=== PATIENT | female | born 1990 | race Caucasian/White ===

== ENCOUNTER 2017-01-01 05:59 | Emergency (ER) | payer OTHER ==
[2017-01-01] MEDS ORDERED: ONDANSETRON 4 MG/2 ML VIAL IVP STA (06:35)
[2017-01-01] MEDS ORDERED: ONDANSETRON 4 MG/2 ML VIAL ONE (06:40)
[2017-01-01] MEDS ORDERED: SODIUM CHLORIDE 0.9% 1,000 ML IV ONE ×2 (06:40→06:53)
--- NOTE | 2017-01-01 06:40 | ED Physician Documentation ---
History of Present Illness - History obtained from History obtained from: Patient, Family <Miles Dickerson - Last Filed: 01/01/17 06:37> <Jeffrey Breaux - Last Filed: 01/01/17 07:44> - Stated complaint Stated Complaint: SYNCOPE,HEAD PX - Chief complaint Chief Complaint: Neuro - Additonal information Additional information: This patient is a 26-year-old female without any significant medical problems who was given an injection subcutaneously of hCG this morning as directed. This was her first injection. Once the injection was administered she developed lightheadedness and had a syncopal episode. She fell backwards striking the posterior aspect of her skull against the screen door base. She sustained a cephalohematoma posteriorly. She then developed nausea and vomiting is brought in for evaluation. Historically this patient has a history of easy fainting. She is on hCG for fertility augmentation. Review of systems: For pertinent positive and negatives in the review of systems please see history of present illness. Otherwise all other systems have been reviewed and are negative. Dragon disclaimer: Parts of this medical record were created using voice recognition technology. Because of the inherent limitations of this system occasional same sounding word substitutions do occur and persist despite proofreading. Please read the document for context. (Miles Dickerson) Review of Systems Ten Systems: 10 systems reviewed and negative Constitutional: denies: Fever, Chills, Myalgias Eyes: denies: Loss of vision, Decreased vision, Photophobia Ears: denies: Loss of hearing, Ear pain Nose: denies: Rhinorrhea / runny nose Cardiac: denies: Chest pain / pressure, Palpitations Respiratory: denies: Dyspnea, Cough GI: denies: Abdominal Pain, Abdominal Swelling, Nausea, Vomiting : denies: Dysuria, Hesitancy, Unable to Void, Incontinent, Hematuria, Discharge Skin: denies: Rash, Lesions, Abrasion (s) Musculoskeletal: denies: Neck pain, Back pain, Extremity pain, Joint pain, Extremity swelling, Joint swelling, Pain with weight bearing, Reviewed and negative Neurologic: reports: Syncope. denies: Generalized weakness, Numbness, Difficulty speaking Psychiatric: denies: Depressed, Suicidal <Miles Dickerson - Last Filed: 01/01/17 06:37> PD PAST MEDICAL HISTORY - Past Medical History Past Medical History: No - Past Surgical History Past Surgical History: No - Social History Does the pt smoke?: No Smoking Status: Never smoker Does the pt drink ETOH?: No Does the pt have substance abuse?: No - Immunizations Immunizations are current?: Yes - POLST Patient has POLST: No <Miles Dickerson - Last Filed: 01/01/17 06:37> <Jeffrey Breaux - Last Filed: 01/01/17 07:44> - Present Medications Home Medications: Ambulatory Orders Medication Instructions Recorded Confirmed Choriogonad 250 mcg SUBQ ONCE 01/01/17 Ondansetron Odt [Zofran] 4 mg TL Q6H PRN #10 tablet 01/01/17 Pnv95/Ferrous Fumarate/FA 1 tab PO DAILY 01/01/17 01/01/17 [ Tablet] - Allergies Allergies/Adverse Reactions: Allergies Allergy/AdvReac Type Severity Reaction Status Date / Time No Known Drug Allergies Allergy Verified 01/01/17 06:09 PD ED PE NORMAL - Vitals Vital signs reviewed: Yes - General General: Alert and oriented X 3, Well developed/nourished, Other (Mild distress secondary to headache and nausea) - HEENT HEENT: PERRL, EOMI, Ears normal, Moist mucous membranes, Pharynx benign, Dentition benign, Other (Moderate-sized posterior scalp cephalhematoma) - Neck Neck: Supple, no meningeal sign - Cardiac Cardiac: RRR, No murmur - Respiratory Respiratory: No respiratory distress, Clear bilaterally - Abdomen Abdomen: Normal bowel sounds, Soft, Non tender, Non distended - Derm Derm: Normal color, Warm and dry - Extremities Extremities: No deformity, No tenderness to palpate, Normal ROM s pain - Neuro Neuro: Alert and oriented X 3, county manager 2-12 intact, No motor deficit, No sensory deficit, Normal speech <Miles Dickerson - Last Filed: 01/01/17 06:37> Results - EKG (time done) 0642 Rate: Rate (enter#) (87) Rhythm: NSR Ischemia: Normal ST segments Compare to prior EKG: Old EKG unavailable Computer interpretation: Agree with computer - Rads (name of study) CT head without Radiology: Prelim report reviewed (Impression: 1. Scalp hematoma. No acute intracranial abnormality seen.), EMP read indepedently, See rad report <Jeffrey Breaux - Last Filed: 01/01/17 07:44> - Vitals Vitals: Vital Signs - 24 hr 01/01/17 01/01/17 06:04 06:18 Temperature 35.8 C L Heart Rate 79 83 Respiratory 14 12 Rate Blood Pressure 137/88 H 119/82 H O2 Saturation 100 100 Oxygen O2 Source Room air - Labs Labs: Laboratory Tests 01/01/17 01/01/17 06:50 06:50 WBC 10.4 RBC 4.58 Hgb 14.0 Hct 41.4 MCV 90.4 MCH 30.5 MCHC 33.8 RDW 12.7 Plt Count 204 MPV 8.4 Neut # 6.8 H Lymph # 3.1 [place] # 0.5 Eos # 0.0 Baso # 0.0 Absolute Nucleated RBC 0.00 Nucleated RBCs 0.0 Sodium 140 Potassium 3.9 Chloride 104 Carbon Dioxide 27 Anion Gap 9.0 BUN 17 Creatinine 0.7 Estimated GFR (MDRD) 101 Glucose 113 H Calcium 9.1 PD MEDICAL DECISION MAKING <Miles Dickerson - Last Filed: 01/01/17 06:37> - ED course Complexity details: reviewed results, re-evaluated patient, considered differential, d/w patient, d/w family <Jeffrey Breaux - Last Filed: 01/01/17 07:44> - ED course ED course: Patient is a pleasant 26-year-old female who historically has problems with near syncope. She was administered a subcutaneous injection of hCG for fertility augmentation when she had a witnessed syncopal episode. She fell backwards striking her head against the door frame and sustained a large cephalohematoma. She has had nausea and vomiting as well. She is alert and oriented 3 And has a normal neurologic examination. Her EKG demonstrates normal sinus rhythm with a normal HI, QRS, QT interval. There is no ST segment elevation, depression, or T-wave inversion. I suspect his syncope is probably vasovagal mediated by the injection not the medication. This was her first dose. The most concerning thing is the cephalohematoma. Although she is alert and oriented and has a normal neurologic exam she has nausea and vomiting and will therefore get a CT scan of her head stat. We will also give her fluids and some nausea medications. (Miles Dickerson) 26 y/o female with syncopal episode after an injection has fallen with the episode and has a scalp hematoma and nausea. She has responded to zofran and IV fluids and she is given IV toradal 15mg for pain. Electrolytes and blood counts are normal. She is discharged with her with a diagnosis of syncope and concussion. (Jeffrey Breaux) Departure <Miles Dickerson - Last Filed: 01/01/17 06:37> <Jeffrey Breaux - Last Filed: 01/01/17 07:44> - Departure Disposition: 01 Home, Self Care Clinical Impression: Concussion Qualifiers: Encounter type: initial encounter Loss of consciousness presence/duration: with LOC of 30 min or less Qualified Code(s): S06.0X1A - Concussion with loss of consciousness of 30 minutes or less, initial encounter Syncope Qualifiers: Syncope type: vasovagal syncope Qualified Code(s): R55 - Syncope and collapse Instructions: ED Syncope Vasovagal, ED Concussion Follow-Up: MILDRED LOPEZ [Primary Care Provider] - Prescriptions: Ondansetron Odt [Zofran] 4 mg TL Q6H PRN #10 tablet PRN Reason: Nausea / Vomiting
[2017-01-01 06:57] LABS: BASOPHILS % (AUTO) 0.4 %; EOSINOPHILS % (AUTO) 0.4 %; HCT - HEMATOCRIT 41.4 % (37.0-47.0); LYMPHOCYTES # (AUTO) 3.1 10^3/uL (1.5-3.5); LYMPHOCYTES % (AUTO) 29.6 %; MEAN CORPUSCULAR HEMOGLOBIN 30.5 pg (27.0-31.0); MEAN CORPUSCULAR HGB CONC 33.8 g/dL (32.0-36.0); MEAN CORPUSCULAR VOLUME 90.4 fL (81.0-99.0); MEAN PLATELET VOLUME 8.4 fL (7.9-10.8); MONOCYTES # (AUTO) 0.5 10^3/uL (0.0-1.0); MONOCYTES % (AUTO) 4.4 %; NEUTROPHILS # (AUTO) 6.8 10^3/uL (1.5-6.6); NEUTROPHILS % (AUTO) 65.2 %; RED BLOOD COUNT 4.58 10^6/uL (4.20-5.40); RED CELL DISTRIBUTION WIDTH 12.7 % (12.0-15.0); UNCORRECTED WHITE BLOOD COUNT 10.4 x10^3/uL; WHITE BLOOD COUNT 10.4 x10^3/uL (4.8-10.8)
[2017-01-01 07:05] LABS: CALCIUM 9.1 mg/dL (8.5-10.3); CREATININE 0.7 mg/dL (0.4-1.0); POTASSIUM 3.9 mmol/L (3.5-5.0)
[2017-01-01] MEDS ORDERED: KETOROLAC 60 MG/2 ML VIAL IVP STA (07:25)
[2017-01-01] MEDS ORDERED: KETOROLAC 30 MG/ML VIAL ONE (07:27)
--- NOTE | 2017-01-01 07:33 | CT Preliminary Report ---
Exam: CT Head W/O IMPRESSION: 1. Scalp hematoma. No acute intracranial abnormality seen. [facility] SITE ID: [id number]
--- NOTE | 2017-01-01 07:36 | CT Report ---
EXAM: CT HEAD EXAM DATE: 01/01/2017 07:24 AM. CLINICAL HISTORY: Fall occipital hematoma. COMPARISON: None. TECHNIQUE: Multiaxial CT images were obtained from the foramen magnum to the vertex. IV contrast: Non e. Reformats: Coronal. In accordance with CT protocol optimization, one or more of the following dose reduction techniques w ere utilized for this exam: automated exposure control, adjustment of mA and/or KV based on patient s ize, or use of iterative reconstructive technique. FINDINGS: Parenchyma: No intraparenchymal hemorrhage. No evidence of mass, midline shift, or CT findings of inf arction. Wang-white differentiation is distinct. Extraaxial Spaces: Normal for age. No subdural or epidural collections identified. Ventricles: Normal in size and position. Sinuses: Imaged paranasal sinuses, orbits, and mastoids show no significant abnormality. Bones: No evidence of fracture or calvarial defect. Other: Left posterior scalp hematoma. IMPRESSION: 1. Scalp hematoma. No acute intracranial abnormality seen. [facility] Referring Provider Line: [phone] SITE ID: [id number]
[2017-01-01 08:02] VITALS: BP 119/54
== END 2017-01-01 07:58 | disposition home or self-care (01) ==
LOC: ED 05:59
DX: S06.0X1A Concussion with loss of consciousness of 30 minutes or less, initial encounter (principal); S00.93XA Contusion of unspecified part of head, initial encounter; W18.30XA Fall on same level, unspecified, initial encounter; W22.09XA Striking against other stationary object, initial encounter; R55 Syncope and collapse
CPT/HCPCS: 36415; 70450; 80048; 85025; 93005; 96361; 96374; 96375; 99284; 99285